=== PATIENT | female | born 1955 | race Caucasian/White ===

== ENCOUNTER → 2016-07-29 | Outpatient (CLI) | payer BC ==
[~2016-07-29] MED LIST: HERBAL SUPPL; LRT5 PO
--- NOTE | 2016-07-30 13:34 | MAMMOGRAPHY REPORT ---
BILATERAL DIGITAL SCREENING MAMMOGRAM TOMOSYNTHESIS WITH CAD: 07/29/2016 CLINICAL HISTORY: Routine screening examination. TECHNIQUE: Breast tomosynthesis in addition to standard 2D mammography was performed. Current study was also evaluated with a Computer Aided Detection (CAD) system. COMPARISON: Comparison is made to exams dated: 07/20/2015 mammogram, 07/18/2013 mammogram, 07/14/2012 m ammogram, 07/08/2011 mammogram, 08/02/2009 mammogram - [facility], and 02/28/2008. BREAST COMPOSITION: The tissue of both breasts is heterogeneously dense, which may obscure small ma sses. FINDINGS: The breast parenchymal pattern is similar to prior mammograms. No new suspicious mass, ar chitectural distortion or cluster of microcalcifications is seen. IMPRESSION: ACR BI-RADS CATEGORY 1: NEGATIVE There is no mammographic evidence of malignancy. A 1 year screening mammogram is recommended. The p atient will receive written notification of the results. Approximately 10% of breast cancers are not detected with mammography. A negative mammographic repor t should not delay biopsy if a clinically suggestive mass is present. America Moser M.D. ay/:07/29/2016 21:51:13 Information Technology Technician: Maria Elena MARIN(R)(M), [facility] letter sent: Normal 1/2 BI-RADS Code: ACR BI-RADS Category 1: Negative
== END | disposition home or self-care (01) ==
LOC: C.MAMM 15:21
PROVIDERS: ATTEND Obstetrics & Gynecology
DX: Z12.31 Encounter for screening mammogram for malignant neoplasm of breast (principal)

== ENCOUNTER → 2017-07-31 | Outpatient (CLI) | payer BC ==
--- NOTE | 2017-08-03 08:08 | MAMMOGRAPHY REPORT ---
BILATERAL DIGITAL SCREENING MAMMOGRAM TOMOSYNTHESIS WITH CAD: 07/31/2017 CLINICAL HISTORY: Routine screening. Patient has no complaints. TECHNIQUE: Breast tomosynthesis in addition to standard 2D mammography was performed. Current study was also evaluated with a Computer Aided Detection (CAD) system. COMPARISON: Comparison is made to exams dated: 07/29/2016 mammogram, 07/20/2015 mammogram, 07/19/2014 m ammogram, 07/18/2013 mammogram, 07/14/2012 mammogram, and 07/08/2011 mammogram - [facility]. BREAST COMPOSITION: The tissue of both breasts is heterogeneously dense, which may obscure small mas ses. FINDINGS: The parenchymal pattern is unchanged. No developing mass, architectural distortion or clus ter of suspicious microcalcifications is seen in either breast. IMPRESSION: ACR BI-RADS CATEGORY 2: BENIGN There is no mammographic evidence of malignancy. A 1 year screening mammogram is recommended. The pa tient will receive written notification of the results. Approximately 10% of breast cancers are not detected with mammography. A negative mammographic report should not delay biopsy if a clinically suggestive mass is present. America Moser M.D. ay/:07/31/2017 16:22:05 Crew Truck Driver: Maria Elena MARIN(R)(M), [facility] letter sent: Normal 1/2 BI-RADS Code: ACR BI-RADS Category 2: Benign
== END | disposition home or self-care (01) ==
LOC: C.MAMM 09:00
PROVIDERS: ATTEND Obstetrics & Gynecology
DX: Z12.31 Encounter for screening mammogram for malignant neoplasm of breast (principal)

== ENCOUNTER 2024-02-19 05:12 | Observation (INO) ==
--- NOTE | 2024-01-18 16:31 | PAT Medication Instructions ---
Medication Instructions Date of Service January 18, 2024 Home Medications albuterol sulfate 90 mcg/actuation aerosol inhaler 2 puff inhalation QID PRN SOB calcium carbonate (Calcium 600) 600 mg PO BID cholecalciferol (vitamin D3) 50 mcg (2,000 unit) capsule (Vitamin D3) 50 mcg PO QAM diphenhydramine HCl 25 mg capsule (Benadryl) 25 mg PO TID PRN allergies hydrocodone 5 mg-acetaminophen 325 mg tablet 1 tab PO Q8H PRN Pain magnesium 100 mg tablet 100 mg PO BID naproxen sodium 220 mg capsule 220 mg PO BID PRN Pain potassium 99 mg tablet 99 mg PO QAM vitamin B complex 1 tab PO QAM ASK your surgeon for instructions naproxen sodium 220 mg capsule 220 mg PO BID PRN Pain DO NOT take the morning of surgery calcium carbonate (Calcium 600) 600 mg PO BID cholecalciferol (vitamin D3) 50 mcg (2,000 unit) capsule (Vitamin D3) 50 mcg PO QAM diphenhydramine HCl 25 mg capsule (Benadryl) 25 mg PO TID PRN allergies magnesium 100 mg tablet 100 mg PO BID potassium 99 mg tablet 99 mg PO QAM vitamin B complex 1 tab PO QAM Take morning of surgery With a small sip of water, OTHERWISE NOTHING TO EAT OR DRINK AFTER MIDNIGHT: albuterol sulfate 90 mcg/actuation aerosol inhaler 2 puff inhalation QID PRN SOB (use if needed; please bring rescue inhaler with you to hospital day of surgery if possible) hydrocodone 5 mg-acetaminophen 325 mg tablet 1 tab PO Q8H PRN Pain (if needed) Take evening before surgery albuterol sulfate 90 mcg/actuation aerosol inhaler 2 puff inhalation QID PRN SOB (if needed) calcium carbonate (Calcium 600) 600 mg PO BID diphenhydramine HCl 25 mg capsule (Benadryl) 25 mg PO TID PRN allergies (if needed) hydrocodone 5 mg-acetaminophen 325 mg tablet 1 tab PO Q8H PRN Pain (if needed) magnesium 100 mg tablet 100 mg PO BID Other Notes If you have any questions please call us at [phone] or [phone] or [phone] or [phone]
--- NOTE | 2024-01-26 08:43 | Anesthesiology Consultation ---
Date of Service January 26, 2024 Assessment & Plan (1) Encounter for pre-operative examination: - Infectious disease screening: Per assessment on 01/26/24: No known recent infectious disease contacts or current infectious disease symptoms. - Outpatient joint assessment: Pt currently scheduled for inpatient pathway. If surgeon requests review for outpatient joint pathway, patient is an acceptable candidate for outpatient joint program from anesthesia standpoint pending surgeon's office assessment that patient is motivated, has good support and completes Same Day Joint Program preop requirements. Chart Review Chart Review: Acceptable Risk for Surgery and Patient seen in Pre Admission Testing Teaching & Discussion Pre-Anesthesia Teaching/Discussion Notes: Instructed NPO after midnight before surgery,except medications with 15 cc of water. Medication instructions provided according to the PAT guidelines. History Surgery Operation Date: 02/19/24 11:00 Proposed Procedures p Right Total Hip Arthroplasty Anterior - Godfrey Segura, Height/Weight Height: 5 ft 4 in Weight: 61.1 kg Allergies Allergy/AdvReac Type Severity Reaction Status Date / Time bee venom protein (honey bee) Allergy Unknown "itching Verified 01/18/24 09:47 to as bad as anaphylaxis" adhesive Allergy Hives, Verified 01/20/24 13:14 blistering Medications Home Medications Medication Instructions Recorded Confirmed Last Taken albuterol sulfate 90 mcg/actuation 2 puff inhalation QID PRN SOB 01/18/24 01/18/24 Unknown aerosol inhaler calcium carbonate (Calcium 600) 600 mg PO BID 01/18/24 01/18/24 Unknown cholecalciferol (vitamin D3) 50 50 mcg PO QAM 01/18/24 01/18/24 Unknown mcg (2,000 unit) capsule (Vitamin D3) diphenhydramine HCl 25 mg capsule 25 mg PO TID PRN allergies 01/18/24 01/18/24 Unknown (Benadryl) hydrocodone 5 mg-acetaminophen 325 1 tab PO Q8H PRN Pain 01/18/24 01/18/24 Unknown mg tablet magnesium 100 mg tablet 100 mg PO BID 01/18/24 01/18/24 Unknown naproxen sodium 220 mg capsule 220 mg PO BID PRN Pain 01/18/24 01/18/24 Unknown potassium 99 mg tablet 99 mg PO QAM 01/18/24 01/18/24 Unknown vitamin B complex 1 tab PO QAM 01/18/24 01/18/24 Unknown Past Medical History Medical History Asthma Osteoarthritis of right hip Exercise / Class Metabolic Activity II 4-5 Yardwork/Stairs/Walk up hill Past Surgical History Surgical History History of open reduction and internal fixation (ORIF) procedure Right ulna > hardware removed Hx of colonoscopy Hx of myringotomy No tubes Nausea and vomiting after administration of anesthetic agent S/P hardware removal Right ulna Past Anesthesia History No Hx of Anesthesia Complications and No Family Hx of Anesthesia Complications History of PONV History of PONV and Hx of Motion Sickness Social History Smoking Status: Former smoker Do You Dip or Chew Tobacco: No Smoking End Date: Quit 50 years ago, occasional use Hx Alcohol Use: Yes Alcohol type: wine alcohol intake frequency: 0-2 drinks per day (1 drink/day) Hx Substance Use: No substance use type: does not use Review of Systems Patient denies chest pain, shortness of breath, dyspnea on exertion, fever, chills, cough, wheezing, palpitations. Physical Exam Vital Signs BP 117/80 P 71 TEMP 97.9 SP02 98%RA RESP 18 Physical Full cervical extension range of motion. Full TMJ range of motion. TMD 3 finger breaths Mallampati Score II Dentition: intact, + missing teeth, tooth extraction to be done 01/28/24 to remove broken tooth (patient letting surgeon know) Lungs: clear throughout to auscultation Cardiac: regular rate and rhythm, no murmurs noted Spine: normal Carotid arteries: negative bruit Extremities: no LE edema Lab Results Anesthesia Preop Results Results Anesthesia Widget: WBC 4.83 K/ul (4.8-10.8) 01/26/24 Hgb 12.6 g/dl (12.0-16.0) 01/26/24 Hct 37.9 % (37.0-47.0) 01/26/24 Plt 328 K/uL (130-400) 01/26/24 Na 140 mmol/L (136-145) 01/26/24 K 3.6 mmol/L (3.5-5.1) 01/26/24 Cl 105 mmol/L (98-107) 01/26/24 CO2 28 mmol/L (21-32) 01/26/24 BUN 20 mg/dl (6-23) 01/26/24 Creat 0.82 mg/dl (0.6-1.2) 01/26/24 Glucose Level 65 mg/dl (70-99(Fasting)) L 01/26/24 PT 10.4 Seconds (9.0-12.0) 01/26/24 PTT 29 Seconds (21-31) 01/26/24 INR 1.0 (0.9-1.1) 01/26/24 Blood Type O Positive 01/26/24 Antibody Screen NEGATIVE 01/26/24 Testing Electrocardiogram Date: 01/26/24 NSR at 70bpm. "Normal ECG" Chest X-Ray Date: 01/26/24 Findings: + NAD
--- NOTE | 2024-02-18 10:07 | History & Physical Report ---
Date of Service February 18, 2024 Assessment & Plan (1) Osteoarthritis of right hip: We will proceed with a right anterior total of arthroplasty. Postoperatively she will be started on aspirin for DVT prophylaxis and kept overnight in the hospital for postop medical management. She plans to use energy physical therapy upon discharge. History of Present Illness Chief Complaint: Osteoarthritis of the right hip. Primary Care Provider: Peter Perez MD Annamaria is a pleasant 68-year-old female who has been dealing with chronic increasing right hip and groin pain. It hurts her when she goes for long walks. It hurts her when she gets in and out of a car. X-rays and clinical examination been diagnostic for osteoarthritis of the right hip. After failing conservative treatment, she has elected to proceed with a right anterior total of arthroplasty. Allergies Allergy/AdvReac Type Severity Reaction Status Date / Time bee venom protein (honey bee) Allergy Unknown "itching Verified 01/18/24 09:47 to as bad as anaphylaxis" adhesive Allergy Hives, Verified 01/20/24 13:14 blistering Home Medications Medication Instructions Recorded Confirmed Type albuterol sulfate 90 mcg/actuation 2 puff inhalation QID PRN SOB 01/18/24 01/18/24 History aerosol inhaler calcium carbonate (Calcium 600) 600 mg PO BID 01/18/24 01/18/24 History cholecalciferol (vitamin D3) 50 50 mcg PO QAM 01/18/24 01/18/24 History mcg (2,000 unit) capsule (Vitamin D3) diphenhydramine HCl 25 mg capsule 25 mg PO TID PRN allergies 01/18/24 01/18/24 History (Benadryl) hydrocodone 5 mg-acetaminophen 325 1 tab PO Q8H PRN Pain 01/18/24 01/18/24 History mg tablet magnesium 100 mg tablet 100 mg PO BID 01/18/24 01/18/24 History naproxen sodium 220 mg capsule 220 mg PO BID PRN Pain 01/18/24 01/18/24 History potassium 99 mg tablet 99 mg PO QAM 01/18/24 01/18/24 History vitamin B complex 1 tab PO QAM 01/18/24 01/18/24 History Past Med/Surg History Problem List Encounter for pre-operative examination Medical History Asthma Osteoarthritis of right hip Surgical History Nausea and vomiting after administration of anesthetic agent S/P hardware removal Right ulna History of open reduction and internal fixation (ORIF) procedure Right ulna > hardware removed Hx of colonoscopy Hx of myringotomy No tubes Social History Smoking Status: Former smoker Smoking End Date: Quit 50 years ago, occasional use; Second Hand Exposure: Yes (hx); Do You Dip or Chew Tobacco: No; Tobacco Cessation Education Requested by Patient: No Hx Alcohol Use: Yes Alcohol type: wine Hx Substance Use: No Preferred Language: Slovak Communication Ability: Effective Education Professor Required: No Beliefs That Will Affect Care: None Current Living Situation: Other Current Living Situation Comment: roommates Other Information That Helps Us Care for You: No Feels Safe at Home: Yes Safety Concerns: Feels Safe At This Time Assistive Devices: Glasses Review of Systems All systems reviewed & are unremarkable except as noted in HPI & below. Physical Exam On physical examination the right hip, she is decreased range of motion. She has pain with forced internal/external rotation. All of her pain is located in the groin.. Constitutional WD/WN, vitals as above Eyes PERRL, conjunctivae normal, anicteric sclerae ENMT external ear and nose normal, oropharynx normal Neck trachea midline, no thyromegaly Respiratory normal respiratory effort Cardiovascular RRR, no murmur, no edema Gastrointestinal (Abdomen) normal bowel sounds, soft, nontender, no hepatosplenomegaly Psychiatric A+Ox3, euthymic affect Results & Data Results & Data Laboratory Results . Diagnostic Findings X-rays of the right hip show advanced osteoarthritis with joint space narrowing, osteophyte formation, and dzer-cy-kumb articulation. PG Care Time/CCT Total # of Minutes Spent Total Time Spent with Patient: Total time spent is greater than 50% in coordination of care (as documented) at patient's floor/unit and/or counseling patient: Coding Level of Care Code None Diagnoses Osteoarthritis of right hip M16.11
[2024-02-19] MEDS: ACETAMINOPHEN 500 MG TAB PO SCH ×2 (05:37→13:41)
[2024-02-19] MEDS: dexAMETHasone**PF** 10 MG/ML VIAL IV SCH (05:38)
[2024-02-19] MEDS: GABAPENTIN 300 MG CAP PO SCH (05:38)
[2024-02-19] MEDS: FAMOTIDINE 20 MG TAB PO SCH (05:38)
[2024-02-19] MEDS: LR 60ML/HR IV SCH (05:38)
[2024-02-19] MEDS: LR 500ML BOLUS, THEN 15ML/HR IV SCH (05:51)
--- NOTE | 2024-02-19 06:20 | History & Physical Bridge Note ---
Date of Service February 19, 2024 History & Physical Bridge Note I have examined the patient, reviewed the History & Physical and in the interval since the performance of the History & Physical I have noted the following changes of clinical significance: no changes noted
[2024-02-19] MEDS ORDERED: ROPIVACAINE 0.5% 5 MG/ML 30 ML VIAL ONE (06:21)
[2024-02-19] MEDS ORDERED: MIDAZOLAM HCL 1 MG/ML 2ML VIAL ONE ×2 (06:39→06:41)
[2024-02-19] MEDS ORDERED: ATROPINE SULFATE 0.1 MG/ML 10ML SYR IV PRN (06:39)
[2024-02-19] MEDS ORDERED: HYDROmorphone INJ 1 MG/ML SYRINGE IV PRN (06:39)
[2024-02-19] MEDS ORDERED: fentaNYL citrate PF 100 MCG/2 ML VIAL ONE (06:39)
[2024-02-19] MEDS ORDERED: fentaNYL citrate PF 100 MCG/2 ML VIAL IV PRN (06:39)
[2024-02-19] MEDS ORDERED: ePHEDrine sulfate 50 MG/ML AMP IV PRN (06:39)
[2024-02-19] MEDS: TRANEXAMIC ACID 1,000 MG **IV Pre-op IV SCH (06:40)
[2024-02-19] MEDS: ceFAZolin 2000MG 2,000 MG/15 ML SYR IV SCH ×2 (06:59→15:26)
[2024-02-19] MEDS ORDERED: PROPOFOL IV EMULSION 10 MG/ML 20 ML VIAL IV ONE (07:17)
[2024-02-19] MEDS ORDERED: ONDANSETRON INJ 2 MG/ML 2 ML VIAL ONE (07:17)
[2024-02-19] MEDS ORDERED: ePHEDrine sulfate 50 MG/ML AMP ONE (07:25)
[2024-02-19] MEDS: ORTHO JOINT ANESTHETIC ONE (07:48)
[2024-02-19] MEDS: ROPIV 0.5% 246mg, Ketorolac 30mg, EPINEPHrine 0.5mg in NSS INFIL SCH (07:51)
--- NOTE | 2024-02-19 07:52 | Operative Report ---
PG Post Operative Report Pre & Post Diagnosis Operation Date: 02/19/24 07:00 Pre-Op Diagnosis: Right Hip Degenerative Joint Disease Post-Op Diagnosis: Right Hip Degenerative Joint Disease I identified the patient and participated in the time-out.: Yes Procedure Operation Date: 02/19/24 07:00 Actual Procedures p Right Total Hip Arthroplasty Anterior(Right) - Godfrey Segura DO Surgeon Godfrey Segura DO Office Rental Clerk Godfrey Alvarez PA-C Estimated Blood Loss 150 Findings Consistent with Post-Op Diagnosis Specimens Right femoral head Description of Procedure Implants used I used a ZimmerBiomet total hip arthroplasty system with a size 2 standard offset Avenir Complete stem, a 50 mm G7 cup with a 25mm screw, an E1 polyet hylene liner, a 36 mm ceramic head with a +3.5 neck. Annamaria arrived at the hospital for the above procedure. She was seen in the preoperative holding area and the operative extremity was identified and signed. She was given a spinal anesthetic, a preoperative antibiotic, and TXA. She was then taken back to the operating room and laid on the table in the supine position. She was given basic sedation. The operative leg was secured to a Puristst leg positioner. The hip was then prepped and draped in sterile fashion. A timeout was done and the patient and the operative extremity was properly identified. An anterior approach was used. Dissection was taken down through the fascia and the tensor muscle belly was retracted laterally and the rectus was retracted medially. The circumflex vessels were identified and ligated. The capsule was then incised and tagged for later repair. The femoral neck was then cut and the femoral head was removed. The acetabulum was exposed. Time was spent doing a complete circumferential labral release. Sequential reaming of the acetabulum up to a size 49 reamer was done. Final reamings were done under fluoroscopy to ensure appropriate version. A Biomet 50 mm G7 cup was then impacted into place. A single 25 mm screw was placed. The E1 polyethylene liner was then snapped into place. Surrounding soft tissues were then injected with 100 cc of an orthopedic pain control cocktail. The proximal femur was then exposed. Sequential broaching up to a size 2 broach was done. Off that broach a size 36 head with a +3.5 neck was trialed. The hip was reduced and fluoroscopic images showed anatomic alignment of the implants in acceptable length. The broach was removed. The final size 2 standard offset Avenir Complete stem was then impacted into place. A ceramic 36 mm head with a +3.5 neck was then impacted onto the stem and the hip was reduced. Final fluoroscopic images showed anatomic alignment of the hip. The capsule was then closed with #1 Vicryl suture. A dilute betadyne lavage was then done for 3 minutes. The joint was then irrigated with normal saline solution. The fascia was closed with #1 PDS suture. Skin was closed with 2-0 Vicryl, gonzalo, and a Silverlon dressing. She was then transferred to a hospital bed and taken to the post anesthesia care unit in stable condition. She tolerated the procedure well. Godfrey Alvarez PA-C, was present for the entire procedure. He was critical for patient positioning, prepping, draping, retraction exposure, wound closure and application of sterile dressing. I attest to the content of the Intraoperative Record and any orders documented therein. Any exceptions are noted below.
[2024-02-19] MEDS: TRANEXAMIC ACID 1,000 MG **IV Intra-op IV SCH (07:58)
--- NOTE | 2024-02-19 08:33 | XRay Report ---
XR hip 1V RT w pelvis CLINICAL HISTORY: IN PACU - Post Surgical TECHNIQUE: 1 view of the right hip and single frontal view of the pelvis were obtained. Comparison: Comparison is made to right hip radiographs 02/19/2024 FINDINGS: Patient is status post total hip arthroplasty with expected postsurgical changes including soft tissu e swelling and subcutaneous emphysema. IMPRESSION: Expected postoperative appearance status post placement of total hip arthroplasty. ACT 112: Negative or not required by law. Electronically signed by: Venu Duarte M.D. 02/19/2024 8:32 AM
[2024-02-19] MEDS: ONDANSETRON INJ 2 MG/ML 2 ML VIAL IV PRN ×2 (08:59→13:42)
--- NOTE | 2024-02-19 09:47 | Anesthesiology Progress Note ---
Date of Service February 19, 2024 Anesthesia Post Procedure Vital Signs Vital Signs: Temp Pulse Pulse Resp BP Pulse Ox O2 Del Method 02/19/24 09:30 36.2 C L 66 17 120/56 L 100 Room Air 02/19/24 09:15 36.2 C L 69 17 114/59 L 99 Room Air 02/19/24 09:00 36.2 C L 70 17 114/59 L 100 Room Air 02/19/24 08:50 70 17 120/74 98 Room Air 02/19/24 08:40 68 11 L 120/65 100 Room Air 02/19/24 08:30 68 15 116/62 100 Oxymask 02/19/24 08:20 77 17 108/64 100 Oxymask 02/19/24 08:14 36.3 C L 81 16 113/61 100 Oxymask 02/19/24 05:36 36.8 C 69 20 128/81 99 Room Air O2 Flow Rate 02/19/24 09:30 02/19/24 09:15 02/19/24 09:00 02/19/24 08:50 02/19/24 08:40 02/19/24 08:30 3 02/19/24 08:20 5 02/19/24 08:14 8 02/19/24 05:36 Transfer of Care Handoff Completed per policy Notes Mental Status: alert / awake / arousable and participated in evaluation Patient Amnestic to Procedure: Yes Nausea / Vomiting: adequately controlled Pain: adequately controlled Airway Patency, RR, SpO2: stable & adequate BP & HR: stable & adequate Hydration State: stable & adequate Neuraxial Anesthesia: was administered and sensory block is resolving Anesthetic Complications: no major complications apparent and Pt Satisfied with anesthetic care
[2024-02-19] MEDS ORDERED: METOCLOPRAMIDE HCL INJ 5 MG/ML 2 ML VIAL IV PRN (10:13)
[2024-02-19] MEDS ORDERED: diphenhydrAMINE Capsule 25 MG CAP PO PRN (10:13)
[2024-02-19] MEDS ORDERED: NON-FORMULARY MEDICATION (Potassium 99 mg Tablet) PO SCH (10:13)
[2024-02-19] MEDS ORDERED: oxyCODONE HCL IR 5 MG TAB (IMMEDIATE RELEASE) PO PRN (10:13)
[2024-02-19] MEDS ORDERED: bisacodyL 10 MG SUPP PR PRN (10:13)
[2024-02-19] MEDS ORDERED: HYDROmorphone INJ 0.5 MG/0.5 ML SYR IV PRN (10:13)
[2024-02-19] MEDS ORDERED: ALBUTEROL HFA 8 GM INHALER INH PRN (10:13)
[2024-02-19] MEDS ORDERED: MAGNESIUM HYDROXIDE SUSP 30 ML UDC PO PRN (10:13)
[2024-02-19] MEDS ORDERED: NALOXONE HCL 0.4 MG/1 ML VIAL/CARP IV PRN (10:13)
[2024-02-19] MEDS: SODIUM CHLORIDE 0.9% 1,000 ML IV SCH (10:43)
[2024-02-19] MEDS: ASPIRIN 81 MG ECTAB PO SCH (11:04)
[2024-02-19] MEDS: DOCUSATE SODIUM 100 MG CAP PO SCH (11:04)
[2024-02-19] MEDS: KETOROLAC TROMETHAMINE 15 MG/ML VIAL IV SCH (11:05)
[2024-02-19] MEDS: MULTIVITAMIN TAB PO SCH (11:05)
--- NOTE | 2024-02-19 11:15 | Fluoroscopy Report ---
FL hip RT 1V CLINICAL HISTORY: RIGHT ANTERIOR HIP TECHNIQUE: 1 views were obtained with the C-arm in the OR with the above procedure. Total fluoroscopy time was 12.2 seconds. Radiation dose was 3 mGy. Comparison: Comparison is made to hip radiographs 12/23/2023 FINDINGS/IMPRESSION: Intraoperative images were obtained of right hip arthroplasty. Please correlate with intraoperative fluoroscopy and operative report. ACT 112: Negative or not required by law. Electronically signed by: Venu Duarte M.D. 02/19/2024 11:14 AM
[2024-02-19] MEDS: SENNA 8.6 MG TAB PO SCH (21:52)
[2024-02-19 23:16] VITALS: RESP 16
[2024-02-20 07:04] VITALS: BP 100/63; PULSE 62; TEMP 97.7; O2SAT 100
--- NOTE | 2024-02-20 08:11 | Orthopedic Progress Note ---
Date of Service February 20, 2024 Assessment & Plan (1) Status post right hip replacement: Overall she is doing fairly well. She is not having much pain in the right hip. She will be seen by physical therapy today for ambulation and range of motion exercises. She can be discharged to home later today. She will follow-up with orthopedics in 2 weeks. Kayley Yin was seen and examined at bedside this morning. Overall she is doing fairly well. She is not having much pain in the right hip. She has been up and ambulating to the bathroom. She has no complaints.. Review of Systems All systems reviewed & are unremarkable except as noted in HPI & below. Physical Exam On physical examination the right hip, the dressing is clean and dry. Her leg i s out full extension. She has active dorsiflexion plantarflexion of her right ankle.. Results & Data Results & Data Laboratory Results . Diagnostic Findings Postoperative x-rays of the right hip show the prosthesis to be in anatomic alignment without any evidence of fracture complication, or loosening.. PG Care Time/CCT Total # of Minutes Spent Total Time Spent with Patient: Total time spent is greater than 50% in coordination of care (as documented) at patient's floor/unit and/or counseling patient: Coding Level of Care Code 53599 Post Operative Follow-Up Diagnoses Status post right hip replacement Z96.641
--- NOTE | 2024-02-20 08:12 | Discharge Summary ---
Date of Service February 20, 2024 Admission HPI (Per Admitting) Annamaria is a pleasant 68-year-old female who has been dealing with chronic increasing right hip and groin pain. It hurts her when she goes for long walks. It hurts her when she gets in and out of a car. X-rays and clinical examination been diagnostic for osteoarthritis of the right hip. After failing conservative treatment, she has elected to proceed with a right anterior total of arthroplasty. Admission Exam (Per Admitting) On physical examination the right hip, she is decreased range of motion. She has pain with forced internal/external rotation. All of her pain is located in the groin.. Principal Diagnosis Same as "Discharge Diagnosis" noted below under Discharge Instructions. Discharge Exam On physical examination the right hip, the dressing is clean and dry. Her leg is out full extension. She has active dorsiflexion plantarflexion of her right ankle.. Discharge Data Procedures Performed Operation Date: 02/19/24 07:00 Actual Procedures p Right Total Hip Arthroplasty Anterior(Right) - Godfrey Segura DO Ordered Studies 02/19/24 07:00 FL hip RT 1V Routine Hospital Course (1) Status post right hip replacement: On February 19, 2024 Annamaria arrived at [facility] and underwent a right hip replacement without complication. She had a spinal anesthetic. Postoperatively she was started on aspirin for DVT prophylaxis and transferred to the general orthopedic floors. Her hospital course was uneventful. On postop day #1, her vital signs were stable and her pain was well-controlled. She was able to participate well with physical therapy doing ambulation and range of motion exercises. She was then discharged to home. She will follow-up orthopedics in 2 weeks. PG Care Time/CCT Total # of Minutes Spent Total Time Spent with Patient: Total time spent is greater than 50% in coordination of care (as documented) at patient's floor/unit and/or counseling patient: Discharge Plan Discharge Items Patient Disposition: Home - Self-Care Reason For Visit: Right Hip Degenerative Joint Disease Discharge Diagnosis: Right hip replacement Activity: Per Instructions section Non-emergency contact: Surgeon Call non-emergency contact if: your wound has increased redness and your wound has increased drainage Follow-up/Referrals: Peter Perez MD [Primary Care Provider] - Diet: Regular Addtl Attending Provider Instructions: Activity and Therapy Recommendations: * If you are using [facility] then therapy will be provided at your home until they feel you have accomplished all of your goals. * If you are using [facility] then Physical Therapy will be provided until they feel you are ready to start Outpatient Physical Therapy. * If you are not using home therapy then Outpatient Physical Therapy should start about 3-5 days from your day of surgery. Therapy will last about 6-10 weeks * You were shown a series of exercises in the hospital. Do these exercises three times each day including the exercises you were shown in physical therapy. * Get up and walk several times each day.~ For the first four weeks, try not to stand or walk for more than one hour at a time. If you do stand or walk for more than one hour, you will not hurt anything, but your leg will likely swell.~~ * As you feel comfortable, you may change from the walker or crutches to a cane and~then to independent walking. Medications: * Narcotic You will likely be sent home from the hospital with a prescription for the narcotic pain medication that worked best throughout your stay. * Cefadroxil -take the antibiotic twice a day for 10 days to help prevent infection. * Aspirin Most patients will be required to take Aspirin 81mg twice a day for 6 weeks after surgery. This is obtained [id number] and a prescription is not necessary. * Other medications may be prescribed for specific circumstances. If you have any questions, please call the office at . * Resume previous home medications unless otherwise instructed TEDs/Elastic Stockings: The white elastic stockings help limit swelling and prevent blood clots from forming in your legs. The more you wear them, the more they work. Wear them for six weeks. Dressing Care: Leave the Silverlon dressing in place for 7 days. After 7 days you may remove the dressing. If the incision is not draining then you may leave the gonzalo open to air. If there is a little bit of drainage or if the gonzalo are getting stuck on your clothing then cover the incision with a dry dressing. The gonzalo will be removed at your 2 week follow-up appointment. Showering: You may shower with the Silverlon dressing in place. Do not let the shower spray hit the dressing directly. Pat the Silverlon dressing dry. If the dressing becomes wet underneath, then simply remove the dressing. Keep the incision dry until you are 7 days out from the day of surgery. After 7 days you may remove the Silverlon dressing and shower with the gonzalo exposed. Let soapy water run over the gonzalo and pat them dry. Do not scrub or soak the incision. Things To Watch For: * Drainage from the incision site that occurs more than one week after your surgery. * Increased redness at the incision site. * Fever above 102 degrees Fahrenheit. * Unusual chest pain or shortness of breath. * Call [facility] at with any of the above prob lems Follow-Up Visit: Follow-up with Dr. Segura's PA (Godfrey Alvarez) 2-3 weeks after your day of surgery. He will remove your gonzalo and answer any questions. If you have any additional questions or concerns, Dr Segura is usually in the office at the same time and will be available An appointment was probably scheduled when you signed-up for surgery in the office. If you have any questions call Office Instructions: More detailed instructions as well as Frequently Asked Questions were provided in a folder by our office when you signed-up for surgery. Please review these instructions when you get home. If you have any further questions or concerns, please feel free to call the office at [phone] Pending Studies at Discharge: No Stand-Alone Forms: [facility], Smoking Cessation Medications and DC Order Prescriptions: New oxycodone 5 mg Tablet 5 mg PO Q4H PRN (Reason: pain) Qty: 30 0RF cefadroxil 500 mg capsule 500 mg PO BID 10 Days Qty: 20 0RF aspirin 81 mg Tablet,Delayed Release (Dr/Ec) 81 mg PO BID 42 Days Qty: 0 0RF Continued hydrocodone-acetaminophen 5-325 mg tablet 1 tab PO Q8H PRN (Reason: Pain) calcium carbonate [Calcium 600] 600 mg calcium (1,500 mg) Tablet 600 mg PO BID potassium 99 mg Tablet 99 mg PO QAM diphenhydramine HCl [Benadryl] 25 mg Capsule 25 mg PO TID PRN (Reason: allergies) magnesium 100 mg Tablet 100 mg PO BID vitamin B complex Tablet 1 tab PO QAM albuterol sulfate 90 mcg/actuation HFA aerosol inhaler 2 puff INHALATION QID PRN (Reason: SOB) cholecalciferol (vitamin D3) [Vitamin D3] 50 mcg (2,000 unit) Capsule 50 mcg PO QAM naproxen sodium 220 mg Capsule 220 mg PO BID PRN (Reason: Pain) Discharge Orders: Discharge Order (Routine); Ordered 02/20/24 Ordered By: Godfrey Segura Admission Data Admit Date/Time: 02/19/24 08:15 Attending Provider: Godfrey Segura Admit Provider: Godfrey Segura Primary Care Provider: Peter Perez
[2024-02-20] MEDS: dexAMETHasone 4 MG TAB PO SCH (08:28)
== END 2024-02-20 10:29 | disposition home or self-care (01) ==
LOC: ASU 05:12 → 3E 05:12
DX: Z91.030 Bee allergy status; J45.909 Unspecified asthma, uncomplicated; Z87.891 Personal history of nicotine dependence; M16.11 Unilateral primary osteoarthritis, right hip